=== PATIENT | male | born 1950 | race Caucasian/White ===

== ENCOUNTER → 2016-12-18 | Outpatient (CLI) | payer SELFPAY ==
[~2016-12-18] MED LIST: AMBR5TAB3 PO; ASCO-297 PO; BRIM10DR14 OP; CALC1CAP21 PO; CEPH-583 PO; DILT-36 PO; DORZ10DR12 OP; FERR325C PO; FURO-153 PO; HYDR12.54 PO; LATA2.5D7 OP; MULT-806 PO; NAPR220T61 PO; SILD20TA PO; WARF5TAB6 PO; WARF5TAB69 PO; [UNRECOGNIZED DRUG - CODE] PO
--- NOTE | 2016-12-19 08:26 | NUR ---
O/P MNT r/t Na & fluid restriction To: Dr Staton From: Kathleen Ambrosio RD, CDE Date: December 18, 2016 Patient: Levi Perez : 1950 Assessment: Mr Perez came for MNT r/t sodium and fluid restriction r/t pulmonary hypertension and cirrhosis of the liver, accompanied by his , Olivia. In Sep 2016 he is hospitalized with fluid overload, at which time they took 70 lbs of fluid off of him, per pt. After his hospital stay, his GI doctor recommended 2 g Na diet, and his restaurant associate, along with PCP, recommended 2000 ml fluid restriction. He weighs daily and is still losing weight. He states that he doesnt have much of an appetite and eats much less than he used to eat. He eats 3 meals daily, and usually has a Boost (or equivalent) every day. Olivia has begun to read labels and shop for very low/no sodium products. They expressed confusion about labels that use % as an indicator of sodium content. He tries to keep his fluid intake at 2000 mg, and states he has very dark and smelly urine. 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 Intervention: 1) Priority modification: a)2 g Sodium diet: Using Recommendations for Salt restricted diet (h/o) reviewed low and high sodium food sources i)reviewed meal plans, and ways to keep meals <600mg Na ii)discussed seasonings and other low sodium flavors for foods. b)2000 ml fluid restriction: reviewed pathophysiology of fluid overload and rationale for restriction. i)Suggestions for fluid sources that help to quench thirst (h/o) ii)Continue with daily weighing; notify PCP of noticeable weight gain. 2)Recommended modifications: recommended snacks r/t to 6 hours between meals, continued weight loss, and need for frequent meals with cirrhosis M/E: by phone or appointment, prn
== END | disposition home or self-care (01) ==
LOC: MNT 15:34
PROVIDERS: ATTEND Family Medicine
DX: E66.8 Other obesity (principal); I10 Essential (primary) hypertension
CPT/HCPCS: 99211